=== PATIENT | male | born 1970 | race Caucasian/White ===

== ENCOUNTER 2020-05-18 02:27 | Emergency (ER) | payer BC ==
[2020-05-18 02:53] VITALS: BP 134/92; PULSE 91; TEMP 99.2; BMI 28.7
[2020-05-18] MEDS ORDERED: AMOX TR/POT CLAV 500MG/125MG TABLETS (FP) PO ONE (03:59)
[2020-05-18] MEDS ORDERED: LIDOCAINE HCL 1%, 10 MG/ML (50 mL VIAL) SQ ONE (04:01)
[2020-05-18] MEDS ORDERED: AMOX TR/POT CLAV 875MG/125MG TABLETS (FP) PO ONE (04:02)
== END 2020-05-18 04:57 | disposition home or self-care (01) ==
LOC: JER 02:27
DX: L03.011 Cellulitis of right finger (principal)
CPT/HCPCS: 73130-TC-RT-FY; 99283-25

== ENCOUNTER 2020-05-18 17:35 | Inpatient (IN) | payer BC ==
[2020-05-18] MEDS ORDERED: morphine CARPU-JECT 4 MG/1 ML DISP.SYRIN IVPUSH ONE (18:27)
[2020-05-18] MEDS ORDERED: VANCOMYCIN 1 GM in D5W (PRE-DOCKED) 1,000 MG/250 ML IVPB ONE (18:28)
[2020-05-18 19:10] LABS: BASO % 0.5 % (0-2.0); EOS % 1.4 % (0-4.5); HEMATOCRIT 43.3 % (35.4-49); HEMOGLOBIN 14.7 GM/dL (11.7-16.9); LYMPH % 16.1 % (8-40); MCH 30.9 pg (25.7-33.7); MEAN CELL VOLUME 90.7 fl (80-96); MEAN PLT VOLUME 8.2 fl (7.5-11.1); PLATELET COUNT 244 K/MM3 (134-434); RBC 4.77 M/mm3 (4.00-5.60); RDW 13.7 % (11.9-15.9); WHITE BLOOD COUNT 9.4 K/mm3 (4.0-10.0)
[2020-05-18 19:31] LABS: POTASSIUM 3.7 mmol/L (3.5-5.1)
[2020-05-18 19:33] LABS: CALCIUM 9.6 mg/dL (8.5-10.1)
[2020-05-18 19:34] LABS: ALBUMIN 3.9 g/dl (3.4-5.0); BLOOD UREA NITROGEN 17.1 mg/dL (7-18)
[2020-05-18] MEDS ORDERED: VANCOMYCIN 1 GRAM (PRE-DOCKED) 1,000 MG/250 ML BAG IVPB ONE (19:34)
[2020-05-18] MEDS ORDERED: morphine SULFATE 4 MG/ML VIAL ONE (19:34)
[2020-05-18 19:37] LABS: CREATININE 0.9 mg/dL (0.55-1.3)
[2020-05-18 19:39] LABS: BILIRUBIN,TOTAL 0.6 mg/dL (0.2-1); TOT PROT 7.2 g/dl (6.4-8.2)
[2020-05-18 20:02] LABS: ERYTHROCYTE SEDIMENTATION RATE 12 mm/hr (0-10)
[2020-05-19] MEDS ORDERED: ACETAMINOPHEN 325 MG TABLET (FP) PO PRN (00:10)
[2020-05-19] MEDS ORDERED: traMADol HCL 50 MG TABLET PO PRN (00:10)
[2020-05-19 07:01] LABS: BASO % 1.1 % (0-2.0); EOS % 3.8 % (0-4.5); HEMATOCRIT 40.1 % (35.4-49); HEMOGLOBIN 13.7 GM/dL (11.7-16.9); LYMPH % 31.1 % (8-40); MCHC 34.2 g/dl (32.0-35.9); MEAN CELL VOLUME 90.7 fl (80-96); MONO % 11.7 % (3.8-10.2); NEUT % 52.3 % (42.8-82.8); PLATELET COUNT 222 K/MM3 (134-434); RBC 4.43 M/mm3 (4.00-5.60); RDW 13.6 % (11.9-15.9); WHITE BLOOD COUNT 7.9 K/mm3 (4.0-10.0)
[2020-05-19 07:23] LABS: ALBUMIN 3.4 g/dl (3.4-5.0); BLOOD UREA NITROGEN 13.6 mg/dL (7-18); CALCIUM 8.9 mg/dL (8.5-10.1)
[2020-05-19 07:27] LABS: CREATININE 0.9 mg/dL (0.55-1.3)
[2020-05-19 07:28] LABS: BILIRUBIN,TOTAL 0.7 mg/dL (0.2-1); TOT PROT 6.2 g/dl (6.4-8.2)
[2020-05-19] MEDS: VANCOMYCIN/WATER BAGS 1,250 MG/250 ML BAG IVPB SCH ×2 (09:15→21:26)
[2020-05-19] MEDS: ENOXAPARIN NA (PORCINE) 40 MG/0.4 ML DISP.SYRIN SQ SCH (09:38)
[2020-05-19] MEDS ORDERED: diphenhydrAMINE HCL 25 MG CAPSULE (FP) PO ONE (14:47)
[2020-05-19 16:14] VITALS: BMI 28.7
[2020-05-19] MEDS ORDERED: PT OWN MED DRAWER 7, Y5N ONE (20:36)
[2020-05-20] MEDS ORDERED: VANCOMYCIN/WATER BAGS 1,250 MG/250 ML BAG IVPB SCH (09:00)
[2020-05-20] MEDS: ENOXAPARIN NA (PORCINE) 40 MG/0.4 ML DISP.SYRIN SQ SCH (09:19)
[2020-05-20 15:49] VITALS: BP 122/79; PULSE 70; TEMP 97.8
== END 2020-05-20 18:24 | disposition home or self-care (01) | DRG 603 ==
LOC: JER 17:35 → JERBED 20:00 → J7W 05-19 15:48
PROVIDERS: ADMIT Hospitalist; ATTEND Family Medicine
DX: L03.011 Cellulitis of right finger (principal); I45.6 Pre-excitation syndrome; F17.210 Nicotine dependence, cigarettes, uncomplicated; T80.89XA Other complications following infusion, transfusion and therapeutic injection, initial encounter; Y84.8 Other medical procedures as the cause of abnormal reaction of the patient, or of later complication, without mention of misadventure at the time of the procedure
CPT/HCPCS: 36415; 71046-TC-FY; 73130-TC-RT-FY; 80053; 85025; 85651; 86140; 87040; 99285-25; C9803; U0003

== ENCOUNTER 2023-12-28 00:43 | Emergency (ER) | payer BC ==
[2023-12-28 01:04] VITALS: TEMP 98.7; BMI 28.5
[2023-12-28] MEDS ORDERED: ACETAMINOPHEN INJECTION 100 ML ONE (01:38)
[2023-12-28] MEDS: LACTATED RINGERS SOLUTION 1000 ML INFUS.BAG IV ONE (02:01)
[2023-12-28] MEDS: ACETAMINOPHEN 1000 MG/100 ML BAG IVPB ONE (02:01)
[2023-12-28 02:06] LABS: BASO % 1.4 % (0-2.0); EOS % 5.5 % (0-4.5); HEMATOCRIT 43.6 % (35.4-49); HEMOGLOBIN 14.7 GM/dL (11.7-16.9); LYMPH % 28.9 % (8-40); MCH 29.7 pg (25.7-33.7); MCHC 33.7 g/dl (32.0-35.9); MEAN CELL VOLUME 88.3 fl (80-96); MEAN PLT VOLUME 7.5 fl (7.5-11.1); MONO % 11.1 % (3.8-10.2); NEUT % 53.1 % (42.8-82.8); PLATELET COUNT 252 10^3/uL (134-434); RBC 4.93 M/mm3 (4.00-5.60); RDW 13.5 % (11.9-15.9); WHITE BLOOD COUNT 7.6 K/mm3 (4.0-10.0)
[2023-12-28 02:13] LABS: INR 0.96 (0.83-1.09)
[2023-12-28 02:16] LABS: ACTIVATED PTT 28.3 SECONDS (25.2-36.5)
[2023-12-28 02:25] LABS: POTASSIUM 3.9 mmol/L (3.5-5.1)
[2023-12-28 02:26] LABS: ALBUMIN 3.5 g/dl (3.4-5.0); BLOOD UREA NITROGEN 20.8 mg/dL (7-18); CALCIUM 9.4 mg/dL (8.5-10.1); MAGNESIUM 2.2 mg/dL (1.8-2.4)
[2023-12-28 02:31] LABS: BILIRUBIN,TOTAL 0.3 mg/dL (0.2-1); CREATININE 0.8 mg/dL (0.55-1.3); TOT PROT 6.8 g/dl (6.4-8.2)
[2023-12-28 04:10] VITALS: BP 134/96; PULSE 68; RESP 13
== END 2023-12-28 04:12 | disposition home or self-care (01) ==
LOC: JER 00:43
PROC: 3E033NZ Introduction of Analgesics, Hypnotics, Sedatives into Peripheral Vein, Percutaneous Approach (ICD-10-PCS; principal; 2023-12-28)
DX: R42 Dizziness and giddiness (principal); R51.9 Headache, unspecified; R07.89 Other chest pain; I10 Essential (primary) hypertension; F17.210 Nicotine dependence, cigarettes, uncomplicated; Z20.822 Contact with and (suspected) exposure to COVID-19
CPT/HCPCS: 0241U-QW; 36415; 71045-TC-FY; 80053; 83735; 84484; 85025; 85610; 85730; 86850; 86900; 86901; 93005; 93010; 99285-25; J0131